=== PATIENT | male | born 1980 | race Caucasian/White ===

== ENCOUNTER 2024-12-20 11:59 | Emergency (ER) | payer OTHER, SELFPAY ==
[2024-12-20 12:00] VITALS: BP 211/121; PULSE 107; RESP 20; TEMP 37.1; O2SAT 98
[2024-12-20 12:04] VITALS: BMI 65.2
--- NOTE | 2024-12-20 12:12 | VDLE_ITS ---
Reason For Study VL/Venous Duplex US, Unilateral
--- NOTE | 2024-12-20 12:12 | EX.ED.DYSGE1 ---
HPI History of Present Illness Chief Complaint: Lower Extremity Injury Narrative Narrative: pt is a 44-year-old male who is presenting to the ER with chief complaint of left lower leg swelling, redness, concern for infection versus DVT. Patient wears compression stockings. Patient is morbidly obese. Patient very pleasant. Patient is not a diabetic that he is aware of. Patient stated that he took his compression stockings off today, and noted that his almost entire left calf is red, swollen, warm, and is concerned about infection. Patient had been admitted to the Coumadin clinic several years ago for leg cellulitis. Patient has normal swelling to his right leg, no redness, erythema, pain. Patient went to an urgent care initially and was sent to the ER. Patient has no chest pain or shortness of breath. Patient has no fever. Patient felt like he had a fever, but he never had a recorded temperature. Patient has no abdominal pain, nausea, vomit. Patient blood pressure is elevated in triage. We will find a large cuff to try to get appropriate blood pressure readings on this patient. Patient has heard that he is have high blood pressure in the past. Patient says that he took down his compression stockings today, and noticed the redness to the left calf. Patient's had this before. REVIEW OF SYSTEMS: Unless otherwise stated in this report the patient's positive and negative responses for review of systems for constitutional, eyes, ENT, cardiovascular, respiratory, gastrointestinal, neurological, , musculoskeletal, and integument systems and related systems to the presenting problem are either stated in the history of present illness or were not pertinent or were negative for the symptoms and/or complaints related to the presenting medical problem. Nurse's notes and vital signs reviewed. The patient is not hypoxic. Vital signs reviewed and patient is not hypoxic. Blood pressure elevated, he has no headache, chest pain, shortness of breath, syncopal episode. General: The patient appears well and in no apparent distress. Patient is resting comfortably on cart. Not toxic, lethargic, or listless. Skin: Warm, dry, no pallor noted. There is no rash noted. Head: Normocephalic, atraumatic Eye: Normal conjunctiva, no drainage, EOMI. PERRL. Ears, Nose, Mouth, and Throat: oral mucosa is moist. Nares patent. Mouth without vesicles. Cardiovascular: Regular Rate and Rhythm, no murmurs, gallops, or rubs Respiratory: Patient is in no distress, no accessory muscle use, lungs are clear to auscultation, no wheezing, rales or rhonchi Back: non-tender, no CVA tenderness bilaterally to percussion. NO CTLS midline or paraspinal tenderness to palpation. GI: Soft, morbidly obese, no tenderness to palpation, no masses appreciated. No rebound, guarding, or rigidity noted. Musculoskeletal: The patient has full range of motion of all extremities and joints with no difficulty. Patient has no pain to the posterior aspect of bilateral posterior thighs, popliteal fossa, and calves. Patient has circumferential redness, erythema, warmth to the left calf just proximal approximately 3 to 4 cm to the bilateral malleoli and just distal to the left knee approximately 4 to 5 cm. Patient does have swelling in the left calf compared to the right. Patient has no motor, no sensory deficits. Neurological: A&O x4, normal speech, no focal neurological deficits. Psychiatric: Cooperative PFSH PFS Home Medications ?Medication ?Instructions ?Recorded ?Last Taken ?Type doxycycline hyclate 100 mg capsule 100 mg PO Q12H #14 caps 08/20/21 Unknown Rx sulfamethoxazole 400 1 tab PO TID #30 tabs 12/20/24 Unknown Rx mg-trimethoprim 80 mg tablet (Bactrim) Allergy/AdvReac Type Severity Reaction Status Date / Time cigarette smoke Allergy Unknown PT UNSURE Verified 12/20/24 12:00 OF REACTION Social History Smoking Status: Never smoker EXAM Physical Exam Const Vital Signs: 12/20/24 12:00 12/20/24 14:45 Temperature 98.8 F Temperature Source Oral Pulse Rate 107 H 92 Respiratory Rate 20 H 16 Blood Pressure 211/121 H 197/124 H Blood Pressure Mean 151 148 Pulse Ox 98 98 Oxygen Delivery Method Room Air MDM MDM MDM Narrative Medical decision making narrative: Patient seen and examined: IV, fluids, IV vancomycin and Bactrim, ultrasound Differential diagnosis includes but is not limited to: DVT, cellulitis, venous stasis, hypertension Relevant laboratory interpretation: Patient white blood cell count is 6.6. Radiological studies: Ultrasound shows no acute signs of DVT. Reevaluation: Patient has asymptomatic hypertension in the ER. Social barriers to healthcare: There are no food insecurities, there is no issue with transportation, there are no insurance barriers Disposition: Patient understands a strong recommendations of buying a large blood pressure cuff that will fit his arms, Following up with and establishing PCP, including a blood pressure log and following up with PCP to see if patient will need to be placed on antihypertensive. Patient was given a dose of IV vancomycin in the ER along with 2 Bactrim. Secondary to patient's size, patient will be placed on 1 Bactrim 3 times daily x 10 days to help with infection. Patient had a skin marker placed around the redness to the left calf. Patient understands that the redness will get outside the skin marker before it starts improving. Patient will come back to the ER for any other acute concerns. Patient is aware of the risk of continuing with elevated blood pressure that is untreated. Lab Data Labs: Laboratory Results - last 24 hr 12/20/24 13:25 WBC 6.6 RBC 5.23 Hgb 15.2 Hct 44.0 MCV 84.1 MCH 29.1 MCHC 34.5 RDW Std Deviation 37.8 RDW Coeff of Lauro 12.3 Plt Count 183 MPV 9.8 Immature Gran % (Auto) 0.200 Neut % (Auto) 61.7 Lymph % (Auto) 24.3 Hutchinson % (Auto) 10.8 H Eos % (Auto) 2.1 Baso % (Auto) 0.9 Absolute Neuts (auto) 4.1 Absolute Lymphs (auto) 1.60 Nucleated RBC % 0 PT 13.8 INR 1.0 Sodium 139 Potassium 3.7 Chloride 101 Carbon Dioxide 28.7 Anion Gap 9 BUN 17 Creatinine 0.97 Estim Creat Clear Calc 182.00 Est GFR (MDRD) Non-Af 99 BUN/Creatinine Ratio 17.4 Glucose 134 H Lactic Acid < 1.0 Calcium 9.0 Total Bilirubin 0.51 AST 24 ALT 36 Alkaline Phosphatase 71 Total Protein 7.3 Albumin 4.2 Globulin 3.1 Albumin/Globulin Ratio 1.3 Discharge Plan Triage Chief Complaint: Lower Extremity Injury ED Provider: Dragan Liriano Dx/Rx/DC Orders Clinical Impression: Cellulitis of left lower extremity, Elevated blood pressure reading Instructions: Cellulitis Dc, ED Cellulitis, ED High Blood Pressure Hypertension Prescriptions: New sulfamethoxazole-trimethoprim [Bactrim] 400-80 mg tablet 1 tab PO TID Qty: 30 0RF No Action doxycycline hyclate 100 mg capsule 100 mg PO Q12H Qty: 14 0RF Primary Care Provider: Care Physician,No Primary Referrals: Care Physician,No Primary [Primary Care Provider, Medical] Activity Restrictions/Additional Instructions: Take your next dose of antibiotic this evening. Continue to elevate legs. Follow-up with PCP next week for reevaluation. Apply a extra-large appropriate blood pressure cuff that is appropriate for your size, pharmacist may help you measure this. Take your blood pressure twice a day for the next 1 to 2 weeks. Record your numbers, time of day, creating a blood pressure log. If your blood pressure is over 130/80, follow-up with your PCP for medication as recommended. If you are having significant and severe headache, severe chest pain, shortness of breath, or any other acute complaints, return back to the ER Print Language: Greenlandic Disposition Disposition: Home, Self Care
[2024-12-20 13:34] LABS: Hematocrit 44.0 % (40-54); Hemoglobin 15.2 g/dL (13.0-16.5); Immature Granulocytes Count 0.010 X10^3/uL (0.0-0.0); Mean Corp Hgb Conc 34.5 g/dL (32-36); Mean Corpuscular Volume 84.1 fL (80-94); Mean Platelet Vol. 9.8 fl (6.2-12.0); NRBC Flagged by Analyzer 0 % (0-5); Platelet Count 183 K/mm3 (150-450); RBC Distribution Width CV 12.3 % (11.6-14.6); RBC Distribution Width SD 37.8 fl (35.1-43.9); Red Blood Count 5.23 M/mm3 (4.6-6.2); White Blood Count 6.6 K/mm3 (4.4-11.0)
[2024-12-20 13:42] LABS: Prothrombin Time (Protime)PT. 13.8 SECONDS (11.7-14.9)
[2024-12-20 13:59] LABS: AST(SGOT) 24 U/L (<=37); Alanine Aminotransfer ALT/SGPT 36 U/L (<=46); Albumin, Serum 4.2 g/dL (3.5-5.0); Alkaline Phosphatase 71 U/L (40-129); Anion Gap 9 (5-15); BUN 17 mg/dL (4-19); BUN/Creat Ratio 17.4 RATIO (10-20); Calcium,Total 9.0 mg/dL (7.6-11.0); Carbon Dioxide 28.7 mmol/L (21.0-32.0); Chloride 101 mmol/L (98-108); Estimated Creatinine Clearance 182.00 ml/min (50-250); Globulin 3.1 g/dL (2.2-4.2); Glucose 134 mg/dL (70-99); Potassium 3.7 mmol/L (3.3-5.1)
[2024-12-20] MEDS: Smz/Tmp Ds Tablet 2 TABLET PO (14:19)
[2024-12-20] MEDS: Vancomycin HCl 2,000 MG in 0.9% Normal Saline (500mL Bag) 500 ML 250 MG IV (14:21)
[2024-12-20] MEDS: 0.9% Normal Saline (500mL Bag) 500 ML 999 ML IV (14:23)
--- NOTE | 2024-12-20 14:40 | CM.ED ---
Social Work Reason for visit: No PCP SW introduced self to patient, explained role at [facility] and reason for visit. Patient stated that he has insurance through his job, that he has a select list of physicians he is able to use that in network, and he just hadnt established with anyone yet. Patient declined additional resources. No further needs identified at this time. Radha Ramirez, INDUCTION COORDINATION POWER ENGINEER, LEGAL DIRECTOR
[2024-12-20 14:45] VITALS: BP 197/124; PULSE 92; RESP 16; O2SAT 98
[2024-12-20 17:13] VITALS: BP 190/102; PULSE 90; RESP 20; TEMP 36.8; O2SAT 99
--- NOTE | 2024-12-22 07:28 | ED.RN ---
Per Dr Wilson, no change in treatment for cultures
== END 2024-12-20 17:13 | disposition home or self-care (01) ==
PROVIDERS: Emergency Provider Emergency Medicine; Visit Provider Emergency Medicine
DX: L03.116 Cellulitis of left lower limb (principal); E66.01 Morbid (severe) obesity due to excess calories; R03.0 Elevated blood-pressure reading, without diagnosis of hypertension; M79.89 Other specified soft tissue disorders
CPT/HCPCS: 80053; 83605; 85025; 85610; 87040; 87149; 93971; 96365; 96366; 99283; A4216

== ENCOUNTER → 2025-01-24 | Outpatient (CLI) | payer OTHER, SELFPAY ==
[2025-01-24 12:29] LABS: Hematocrit 50.7 % (40-54); Hemoglobin 16.5 g/dL (13.0-16.5); Mean Corp Hgb Conc 32.5 g/dL (32-36); Mean Corpuscular Volume 86.5 fL (80-94); Mean Platelet Vol. 10.4 fl (6.2-12.0); Platelet Count 240 K/mm3 (150-450); RBC Distribution Width CV 12.6 % (11.6-14.6); RBC Distribution Width SD 39.7 fl (35.1-43.9); Red Blood Count 5.86 M/mm3 (4.6-6.2); White Blood Count 6.1 K/mm3 (4.4-11.0)
[2025-01-24 13:29] LABS: AST(SGOT) 30 U/L (<=37); Alanine Aminotransfer ALT/SGPT 49 U/L (<=46); Albumin, Serum 4.5 g/dL (3.5-5.0); Alkaline Phosphatase 80 U/L (40-129); Anion Gap 11 (5-15); BUN 15 mg/dL (4-19); BUN/Creat Ratio 18.1 RATIO (10-20); CORTISOL AM 4.18 ug/dL (6.02-18.40); Calcium,Total 9.3 mg/dL (7.6-11.0); Carbon Dioxide 28.3 mmol/L (21.0-32.0); Chloride 100 mmol/L (98-108); Cholesterol 215 mg/dL (<=200); Globulin 3.2 g/dL (2.2-4.2); Glucose 113 mg/dL (70-99); Low Density Lipoprotein Calc. 145 mg/dL; Potassium 4.0 mmol/L (3.3-5.1); Triglycerides 105 mg/dL; Very Low Density Lipoprotein 21 mg/dL (5-40); Vitamin D,25 Hydroxy 16.2 ng/mL (30-100); cholesterol:hdl ratio screen 4.22
[2025-01-29 12:08] LABS: Testosterone, % Free 3.43 % (1.50-4.20); Testosterone, Free 5.01 ng/dL (5.00-21.00)
== END | disposition home or self-care (01) ==
LOC: MFPLAB 09:55
PROVIDERS: PCP Family Medicine; Visit Provider Family Medicine
DX: Z13.1 Encounter for screening for diabetes mellitus (principal); Z13.220 Encounter for screening for lipoid disorders; I10 Essential (primary) hypertension
CPT/HCPCS: 36415; 80053; 80061; 82306; 82533; 83036; 84402; 84403; 84443; 85027

== ENCOUNTER → 2025-01-31 | Outpatient (CLI) | payer OTHER, SELFPAY ==
[2025-02-04 11:09] LABS: Testosterone, % Free 2.65 % (1.50-4.20); Testosterone, Free 3.87 ng/dL (5.00-21.00)
== END | disposition home or self-care (01) ==
LOC: MTLAB 09:18
PROVIDERS: PCP Family Medicine; Referring Provider Family Medicine; Visit Provider Family Medicine
DX: R79.89 Other specified abnormal findings of blood chemistry (principal)
CPT/HCPCS: 36415; 84402; 84403